=== PATIENT | male | born 1990 | race Caucasian/White ===

== ENCOUNTER 2017-01-04 12:07 | Outpatient (CLI) | payer OTHER | END 2017-01-04 12:08 | disposition EMS.NT | LOC: EMS 12:07 | PROVIDERS: ATTEND Surgery | DX: R07.9 Chest pain, unspecified (principal); R06.02 Shortness of breath ==

== ENCOUNTER 2017-01-04 13:20 | Inpatient (IN) | payer OTHER ==
[2017-01-04] MEDS ORDERED: SODIUM CHLORIDE 0.9% 1,000 ML IV ONE ×3 (13:37→14:26)
--- NOTE | 2017-01-04 13:54 | ED Physician Documentation ---
History of Present Illness - Stated complaint Stated Complaint: CP - Additonal information Additional information: hx from pt 26 AD [place] male senf by [facility] for CP SOA and high blood sugar pt reports he had a compound RLE fx with surgery 1-2 months ago healed well has been having CP and SOA for two days pain feels like a burning worse with exertion profoundly exhausted and fatigued also has been drinking and urinating gallons every day for a while today in clinic his FSBS read "High" has has ketotic odor to his breathe denies fever cough nausea too - cannot eat Review of Systems Constitutional: denies: Fever, Chills Cardiac: reports: Chest pain / pressure Respiratory: reports: Dyspnea. denies: Cough GI: reports: Nausea. denies: Abdominal Pain : reports: Frequency Endocrine: denies: Easy bruising / bleeding Immunocompromised: denies: Immunocompromised PD PAST MEDICAL HISTORY - Present Medications Home Medications: Ambulatory Orders Medication Instructions Recorded Confirmed No Known Home Medications [No 01/04/17 01/04/17 Known Home Medications] - Allergies Allergies/Adverse Reactions: Allergies Allergy/AdvReac Type Severity Reaction Status Date / Time No Known Drug Allergies Allergy Verified 01/04/17 13:59 PD ED PE NORMAL - Vitals Vital signs reviewed: Yes - General General: Alert and oriented X 3 - HEENT HEENT: Other (ketotic odor) - Cardiac Cardiac: RRR - Respiratory Respiratory: No respiratory distress, Clear bilaterally - Abdomen Abdomen: Soft, Non tender - Derm Derm: Normal color - Extremities Extremities: No deformity, Other (post op scars, well healed, no edema) - Neuro Neuro: Alert and oriented X 3 Results - Vitals Vitals: Vital Signs - 24 hr 01/04/17 01/04/17 13:38 15:09 Heart Rate 94 91 Respiratory 18 16 Rate Blood Pressure 139/88 H 133/83 H O2 Saturation 97 100 Oxygen O2 Source Room air - EKG (time done) 1330 Rate: Rate (enter#) (94) Rhythm: NSR [place]: Normal Intervals: Normal MD Ischemia: ST elevation c/w repol - Labs Labs: Laboratory Tests 01/04/17 01/04/17 01/04/17 13:30 13:51 13:51 WBC 8.3 RBC 6.06 Hgb 16.4 Hct 48.3 MCV 79.8 L MCH 27.1 MCHC 33.9 RDW 13.8 Plt Count 242 MPV 8.6 Neut # 6.3 Lymph # 1.4 L [place] # 0.6 Eos # 0.0 Baso # 0.1 Absolute Nucleated RBC 0.00 Nucleated RBC % 0.0 VBG pH VBG pCO2 VBG pO2 VBG HCO3 VBG Total CO2 VBG O2 Saturation VBG Base Excess Sodium 124 L Potassium 3.9 Chloride 89 L Carbon Dioxide 11 L* Anion Gap 24.0 H BUN 13 Creatinine 1.1 Estimated GFR (MDRD) 82 L Glucose 522 H* POC Whole Bld Glucose Calcium 9.7 Total Bilirubin 1.5 H AST 17 ALT 25 Alkaline Phosphatase 113 Troponin I Total Protein 9.6 H Albumin 5.4 Globulin 4.2 Albumin/Globulin Ratio 1.3 Lipase 30 Urine Color LT. YELLOW Urine Clarity CLEAR Urine pH 5.5 Ur Specific [place] 1.020 Urine Protein NEGATIVE Urine Glucose (UA) >=1000 H Urine Ketones >=80 H Urine Occult Blood NEGATIVE Urine Nitrite NEGATIVE Urine Bilirubin NEGATIVE Urine Urobilinogen 0.2 (NORMAL) Ur Leukocyte Esterase NEGATIVE Ur Microscopic Review NOT INDICATED Urine Culture Comments NOT INDICATED Serum Ketones SMALL H 01/04/17 01/04/17 01/04/17 13:51 13:51 15:06 WBC RBC Hgb Hct MCV MCH MCHC RDW Plt Count MPV Neut # Lymph # [place] # Eos # Baso # Absolute Nucleated RBC Nucleated RBC % VBG pH 7.165 L VBG pCO2 34.3 L VBG pO2 21.5 L VBG HCO3 12.1 L VBG Total CO2 13.1 L VBG O2 Saturation 43.3 L VBG Base Excess -15.4 L Sodium Potassium Chloride Carbon Dioxide Anion Gap BUN Creatinine Estimated GFR (MDRD) Glucose POC Whole Bld Glucose 426 H Calcium Total Bilirubin AST ALT Alkaline Phosphatase Troponin I < 0.04 Total Protein Albumin Globulin Albumin/Globulin Ratio Lipase Urine Color Urine Clarity Urine pH Ur Specific [place] Urine Protein Urine Glucose (UA) Urine Ketones Urine Occult Blood Urine Nitrite Urine Bilirubin Urine Urobilinogen Ur Leukocyte Esterase Ur Microscopic Review Urine Culture Comments Serum Ketones - Rads (name of study) CTPA Radiology: See rad report (no acute process, no PE, no dissection) PD MEDICAL DECISION MAKING - ED course ED course: DKA, given IVF and iinsulin gtt CP SOA weakness - EKG s ischemia, neg trop, neg CTPA will admit to ICU spoke to hospitalist at 1520 Departure - Departure Disposition: 66 [facility] DC/Xfer Clinical Impression: DKA (diabetic ketoacidoses) Qualifiers: Diabetes mellitus type: type 1 Diabetes mellitus complication detail: without coma Qualified Code(s): E10.10 - Type 1 diabetes mellitus with ketoacidosis without coma Condition: Fair
[2017-01-04 13:56] LABS: BILIRUBIN,URINE NEGATIVE (NEGATIVE); PH,URINE 5.5 PH (5.0-7.5)
[2017-01-04 14:03] LABS: BASOPHILS # (AUTO) 0.1 10^3/uL (0.0-0.1); BASOPHILS % (AUTO) 0.9 %; EOSINOPHILS % (AUTO) 0.4 %; HCT - HEMATOCRIT 48.3 % (42.0-52.0); HGB - HEMOGLOBIN 16.4 g/dL (14.0-18.0); LYMPHOCYTES # (AUTO) 1.4 10^3/uL (1.5-3.5); LYMPHOCYTES % (AUTO) 16.2 %; MEAN CORPUSCULAR HEMOGLOBIN 27.1 pg (27.0-31.0); MEAN CORPUSCULAR HGB CONC 33.9 g/dL (32.0-36.0); MEAN CORPUSCULAR VOLUME 79.8 fL (80.0-94.0); MEAN PLATELET VOLUME 8.6 fL (7.4-11.4); MONOCYTES # (AUTO) 0.6 10^3/uL (0.0-1.0); MONOCYTES % (AUTO) 6.6 %; NEUTROPHILS # (AUTO) 6.3 10^3/uL (1.5-6.6); NEUTROPHILS % (AUTO) 75.9 %; RED BLOOD COUNT 6.06 10^6/uL (4.70-6.10); RED CELL DISTRIBUTION WIDTH 13.8 % (12.0-15.0); UNCORRECTED WHITE BLOOD COUNT 8.3 x10^3/uL; WHITE BLOOD COUNT 8.3 x10^3/uL (4.8-10.8)
[2017-01-04 14:07] LABS: VBG PH 7.165 (7.31-7.41)
[2017-01-04 14:08] LABS: VBG BASE EXCESS -15.4 mmol/L (-2 - +2); VBG OXYGEN SATURATION 43.3 % (60-80); VBG TOTAL CO2 13.1 mmol/L (24-29)
[2017-01-04 14:08] LABS: UA CHARGE (STRIP ONLY) YES; UR CULTURE IF IND NOT INDICATED
[2017-01-04 14:23] LABS: ALBUMIN/GLOBULIN RATIO 1.3 (1.0-2.2); BILIRUBIN,TOTAL 1.5 mg/dL (0.2-1.0); BUN - BLOOD UREA NITROGEN 13 mg/dL (6-20); CALCIUM 9.7 mg/dL (8.5-10.3); CHLORIDE 89 mmol/L (101-111); CREATININE 1.1 mg/dL (0.6-1.2); GFR - MDRD 82 (>89); LIPASE 30 U/L (22-51); POTASSIUM 3.9 mmol/L (3.5-5.0); SODIUM 124 mmol/L (135-145); TOTAL PROTEIN 9.6 g/dL (6.7-8.2)
[2017-01-04 14:24] LABS: CARBON DIOXIDE - CO2 11 mmol/L (21-32); GLUCOSE 522 mg/dL (70-100)
[2017-01-04] MEDS ORDERED: INSULIN REGULAR HUMAN 100 UNIT in SODIUM CHLORIDE 0.9% 100ML 99 ML IV STA (14:25)
[2017-01-04] MEDS ORDERED: IOPAMIDOL-300 100 ML VIAL ONE (14:32)
[2017-01-04] MEDS ORDERED: IOPAMIDOL-300 100 ML VIAL IVP ONE (14:52)
--- NOTE | 2017-01-04 15:13 | CT Preliminary Report ---
Exam: CT CHEST ANGIO (PE) IMPRESSION: Negative for pulmonary embolism at this time. Unremarkable aorta. [facility] SITE ID: [id number]
--- NOTE | 2017-01-04 15:15 | CT Report ---
EXAM: CT ANGIOGRAM CHEST EXAM DATE: 01/04/2017 02:52 PM. CLINICAL HISTORY: Cp soa after recent compound fx RLE. COMPARISON: None. TECHNIQUE: Routine helical imaging was performed through the chest in the pulmonary arterial phase. I V Contrast: 80 cc Isovue 300. Reconstructions: Sagittal, coronal, and 3-D MIP.Sagittal and coronal. In accordance with CT protocol optimization, one or more of the following dose reduction techniques w ere utilized for this exam: automated exposure control, adjustment of mA and/or KV based on patient s ize, or use of iterative reconstructive technique. FINDINGS: Pulmonary Arteries: Diagnostic quality: Adequate through the segmental arteries. No definite evidence for acute or chroni c pulmonary emboli. Enhancement of smaller vessels is suboptimal. RV/LV is within normal limits. There is no interventricular septal bowing. There is no reflux of cont rast material in the IVC. Lungs/Pleura: Clear. No effusion or pneumothorax. Mediastinum: Normal heart size. No pericardial effusion. No coronary artery calcification. No lymphad enopathy. Thoracic Aorta: Well-opacified and unremarkable. Upper Abdomen: Unremarkable. Other: None. IMPRESSION: Negative for pulmonary embolism at this time. Unremarkable aorta. [facility] Referring Provider Line: [phone] SITE ID: [id number]
[2017-01-04] MEDS ORDERED: ACETAMINOPHEN 325 MG TABLET PO PRN (15:25)
[2017-01-04] MEDS ORDERED: oxyCODONE 5 MG TABLET PO PRN (15:25)
[2017-01-04] MEDS ORDERED: PROCHLORPERAZINE 10 MG/2 ML VIAL IVP PRN (15:25)
[2017-01-04] MEDS ORDERED: ZOLPIDEM 5 MG TABLET PO PRN (15:25)
[2017-01-04] MEDS ORDERED: SODIUM CHLORIDE FLUSH 0.9% 10 ML SYRINGE IVP PRN (15:25)
[2017-01-04] MEDS ORDERED: SODIUM CHLORIDE 0.9% 1,000 ML IV SCH (16:00)
[2017-01-04 16:28] LABS: HEMOGLOBIN A1C 2.2 g/dL
[2017-01-04 16:42] LABS: VBG PH 7.171 (7.31-7.41)
[2017-01-04 16:43] LABS: VBG BASE EXCESS -16.9 mmol/L (-2 - +2); VBG OXYGEN SATURATION 84.3 % (60-80); VBG TOTAL CO2 10.8 mmol/L (24-29)
[2017-01-04] MEDS: SODIUM CHLORIDE FLUSH 0.9% 10 ML SYRINGE IVP SCH (16:59)
[2017-01-04] MEDS: PANTOPRAZOLE 40 MG VIAL IVP SCH (16:59)
[2017-01-04] MEDS ORDERED: SODIUM BICARBONATE ABBOJECT 50 MEQ/50 ML SYRINGE IVP ONE (17:03)
[2017-01-04 17:53] LABS: BUN - BLOOD UREA NITROGEN 12 mg/dL (6-20); CALCIUM 8.6 mg/dL (8.5-10.3); CARBON DIOXIDE - CO2 15 mmol/L (21-32); CHLORIDE 102 mmol/L (101-111); CREATININE 0.8 mg/dL (0.6-1.2); GFR - MDRD 119 (>89); GLUCOSE 123 mg/dL (70-100); MAGNESIUM 1.7 mg/dL (1.7-2.8); POTASSIUM 3.3 mmol/L (3.5-5.0); SODIUM 134 mmol/L (135-145)
[2017-01-04] MEDS ORDERED: DEXTROSE 5% 1,000 ML IV SCH (18:00)
[2017-01-04] MEDS ORDERED: INSULIN REGULAR HUMAN 100 UNIT in SODIUM CHLORIDE 0.9% 100ML 99 ML IV ONE (18:43)
[2017-01-04 19:57] LABS: BUN - BLOOD UREA NITROGEN 11 mg/dL (6-20); CALCIUM 8.5 mg/dL (8.5-10.3); CARBON DIOXIDE - CO2 13 mmol/L (21-32); CHLORIDE 102 mmol/L (101-111); CREATININE 0.8 mg/dL (0.6-1.2); GFR - MDRD 119 (>89); GLUCOSE 223 mg/dL (70-100); MAGNESIUM 1.7 mg/dL (1.7-2.8); POTASSIUM 3.2 mmol/L (3.5-5.0); SODIUM 130 mmol/L (135-145)
[2017-01-04] MEDS: NICOTINE 21 MG PATCH TOP SCH (20:44)
[2017-01-04] MEDS ORDERED: D5.45NS W/20 MEQ KCL 1,000 ML IV SCH (21:00)
[2017-01-04 21:19] LABS: CALCIUM 8.6 mg/dL (8.5-10.3); CREATININE 0.9 mg/dL (0.6-1.2)
[2017-01-05 01:53] LABS: CALCIUM 8.3 mg/dL (8.5-10.3); CREATININE 0.9 mg/dL (0.6-1.2); POTASSIUM 3.5 mmol/L (3.5-5.0)
[2017-01-05] MEDS ORDERED: NS W/20 MEQ KCL 1,000 ML IV SCH (03:00)
[2017-01-05] MEDS ORDERED: INSULIN GLARGINE 300 UNIT/3 ML PEN SUBQ SCH (03:00)
[2017-01-05] MEDS: SODIUM CHLORIDE FLUSH 0.9% 10 ML SYRINGE IVP SCH ×3 (03:05→21:37)
[2017-01-05 03:59] LABS: HEMOGLOBIN A1C 1.76 g/dL
[2017-01-05] MEDS: PANTOPRAZOLE 40 MG VIAL IVP SCH (06:06)
[2017-01-05] MEDS: INSULIN ASPART 300 UNIT/3 ML PEN SUBQ SCH ×4 (08:02→21:36)
[2017-01-05] MEDS: ENOXAPARIN 40 MG/0.4 ML SYRINGE SUBQ SCH (09:03)
[2017-01-05] MEDS: NICOTINE 21 MG PATCH TOP SCH (09:05)
[2017-01-05] MEDS ORDERED: INSULIN ASPART 300 UNIT/3 ML PEN SUBQ SCH (11:58)
--- NOTE | 2017-01-05 16:11 | HISTORY & PHYSICAL EXAMINATION ---
DATE OF ADMISSION: 01/04/2017 HISTORY OF PRESENT ILLNESS: This is a 26-year-old white male with a negative past medical history. He takes no routine prescription medications. The patient is in the [email or web address] here on [facility] and also is enrolled in a class. The patient noticed excessive thirst for the past several weeks. There was no change in his bladder or bowels function. Several weeks later, he noticed a "burning chest pain" which was only relieved with drinking milk. This chest pain was not worsened by any activity. There was no associated shortness of breath. There was increased fatigue in general, however. Yesterday while walking from his car to his class he developed significant shortness of breath and also experiences burning chest pain and after attending the class he went to the medical clinic at the [facility]. Evaluation there apparently showed a "high glucose." He was sent to this hospital's emergency room for further management. In the emergency room he was found to have a glucose over 500, acidosis on his blood gas with positive ketones and diagnosed with DKA, new onset of diabetes as well. The patient has been admitted to the intensive care unit for a DKA protocol and has been started on IV fluids and IV insulin drip. REVIEW OF SYSTEMS: The patient denies any recent flu-like symptoms, cough or sputum production, abdominal pain or diarrhea, dysuria, nausea or vomiting. He has never had this type of "burning chest pain" previously. There had been no recent exposures to people who are ill. He has not traveled out of the country. The patient did try taking Tums for his burning chest pain, thinking that it was new onset of indigestion, but this gave no relief, only drinking milk would improve that symptom. A comprehensive review of systems was performed and the only positives are as above. FAMILY HISTORY: Significant for his father has type 2 diabetes. No other family members had any inherited diseases. He has no children. SOCIAL HISTORY: The patient is enrolled in school through [employer] and is active in the [email or web address]. The patient drives. He lives with his . The patient does not smoke cigarettes, but occasionally vapes. He denies very rare alcohol use (1 beer every 3 months). He denies any illicit drug use. MEDICATIONS AT HOME: None. ALLERGIES: NONE. PHYSICAL EXAMINATION: GENERAL: Reveals a young white male who was in no apparent distress, supine in bed, appears fatigued. VITAL SIGNS: Blood pressure is 107/60, pulse is 75 and sinus rhythm. He is afebrile, respiratory rate 22, oxygen saturation 98% on room air. HEENT: Unremarkable except for dry oral mucosa, good dental hygiene is noted. NECK: Shows no JVD, no carotid bruits, no thyromegaly or lymphadenopathy. CHEST: Clear. Good air movement. HEART: Sounds are normal. No audible murmurs. ABDOMEN: Soft, nontender. No guarding or rebound. Normal bowel sounds. EXTREMITIES: No clubbing, cyanosis, or edema. SKIN: There is no rash evident. NEUROLOGIC: Grossly normal. LABORATORY: Sodium 124, potassium 3.9, BUN 13, creatinine 1.1, glucose 522, bilirubin 1.5. Troponin not detected at less than 0.04, normal lipase. Anion gap 24, pH 7.165, bicarbonate 12, CBC within normal limits. Serum ketones, small positive. Urine esterase negative with a pH of 5.5. IMAGING: CT of the chest was performed for evaluation of the severe shortness of breath and this was negative for pulmonary embolism and an unremarkable aorta. EKG sinus rhythm at a rate of 94 with J-point elevation (consistent with a normal early repolarization pattern). There is no old EKG available for comparison. IMPRESSION/DIAGNOSES: 1. Diabetic ketoacidosis. 2. New onset of diabetes. 3. Atypical chest pain per angina/"burning chest pain." 4. Shortness of breath. PLAN: Admit the patient to the ICU for DKA protocol including aggressive IV fluid administration and IV insulin drip per titration protocol. Follow his electrolytes, glucose, ketones, anion gap and pH, as well as urine ketones. The patient will require diabetic teaching and diabetic management which are all new to him. Evaluation for an etiology of type 1 diabetes in this previously young healthy male should be undertaken including evaluation for recent atypical viral infection, pancreatitis or other possible causes. Start H2 emeli for ulcer prophylaxis and also treatment of "burning chest pain " which could be GERD. Evaluation of the burning complaint would follow after stabilization from DKA. Echo could be obtained to evaluate the shortness of breath. Also, cycle troponins and observe his rhythm on telemetry. I suspect, however, that his "shortness of breath" was his appropriate hyperventilation compensating for the present metabolic acidosis of DKA JOB #: [id number] EXT JOB #:[id number] ROXIE
--- NOTE | 2017-01-05 16:19 | PROVIDER PROGRESS NOTE ---
Subjective - Prog Note Date Prog Note Date: 01/05/17 Prog Note Time: 16:16 - Subjective Pt reports feeling: Improved Subjective: He has been off the insulin drip since about 4 5 this morning. He received 10 units of Lantus at about 2:55 AM. His glucoses have been high at 390 this morning and 299 after eating breakfast. I have given him a single dose of short -acting insulin of 20 units for the 399. Current Medications - Current Medications Current Medications: Active Medications Acetaminophen (Tylenol) 650 mg PO Q4HR PRN PRN Reason: Pain 1 to 4 Enoxaparin Sodium (Lovenox) 40 mg SUBQ DAILY [facility], [facility] Last Admin: 01/05/17 09:03 Dose: 40 mg Insulin Aspart (Novolog) 1 - 9 unit SUBQ 0800,1200,1700,2100 [facility], [facility] PRN Reason: Protocol Insulin Glargine (Lantus Solostar) 10 unit SUBQ AC [facility], [facility]1983 Insulin Glargine (Lantus Solostar) 20 unit SUBQ QPM [facility] Nicotine (Nicoderm) 1 patch TOP DAILY [facility] Last Admin: 01/05/17 09:05 Dose: Not Given Oxycodone HCl (Roxicodone) 10 mg PO Q4HR PRN PRN Reason: Pain 8 to 10 Pantoprazole Sodium (Protonix) 40 mg IVP QDAC [facility] Last Admin: 01/05/17 06:06 Dose: 40 mg Prochlorperazine Edisylate (Compazine Inj) 10 mg IVP Q6HR PRN PRN Reason: Nausea / Vomiting Sodium Chloride (Normal Saline Flush 0.9%) 10 ml IVP Q8HR [facility] Last Admin: 01/05/17 14:39 Dose: 10 ml Sodium Chloride (Normal Saline Flush 0.9%) 10 ml IVP PRN PRN PRN Reason: NEEDED PER PROVIDER ORDERS Zolpidem Tartrate (Ambien) 5 mg PO QPM PRN PRN Reason: Insomnia No Known Home Medications [No Known Home Medications] 01/04/17 Objective - Vital Signs/Intake & Output Reviewed Vital Signs: Yes Vital Signs: Vital Signs x48h Pulse Resp BP Pulse Ox 01/05/17 16:00 18 104/55 L 98 01/05/17 15:00 70 24 114/72 97 01/05/17 14:00 87 19 96 01/05/17 13:00 80 24 96 01/05/17 12:00 92 14 96 01/05/17 11:00 70 25 H 97 01/05/17 10:00 76 23 102/63 92 01/05/17 09:00 73 21 107/59 L 97 Intake & Output: Intake & Output 01/02/17 01/03/17 01/04/17 01/05/17 23:59 23:59 23:59 23:59 Intake Total 1892.315 3100.167 Output Total 1999 1800 Balance -775.885 4683.167 - Objective General Appearance: positive: No acute distress, Alert Eyes Bilateral: positive: PERRL, EOMI ENT: positive: Pharynx nml Neck: positive: No JVD. negative: Stiff neck, Carotid bruit Respiratory: positive: Chest non-tender. negative: Wheezes, Rales, Rhonchi Cardiovascular: positive: Regular rate & rhythm, Tachycardia. negative: Gallop/ S4, Friction rub Abdomen: positive: Non-tender, No organomegaly, Nml bowel sounds, No distention Skin: positive: Warm, Dry Extremities: positive: No pedal edema Neurologic/Psychiatric: positive: Oriented x3, CN's nml (2-12), Motor nml - Lab Results Fish Bones: 01/04/17 13:51 01/05/17 01:39 Other Labs: Lab Results x24hrs 01/05/17 01/05/17 01/05/17 Range/Units 14:12 11:55 09:23 VBG pH (7.31-7.41) VBG pCO2 (41-51) mmHg VBG pO2 (25-47) mmHg VBG HCO3 (23-28) mmol/L VBG Total CO2 (24-29) mmol/L VBG O2 Saturation (60-80) % VBG Base Excess (-2 - +2) mmol/L Sodium (135-145) mmol/L Potassium (3.5-5.0) mmol/L Chloride (101-111) mmol/L Carbon Dioxide (21-32) mmol/L Anion Gap (6-13) BUN (6-20) mg/dL Creatinine (0.6-1.2) mg/dL Estimated GFR (MDRD) (>89) Glucose (70-100) mg/dL POC Whole Bld Glucose 299 H 391 H (70 - 100) mg/dL Glycated Hemoglobin (4.6-6.2) % Estim Average Glucose (70-100) Calcium (8.5-10.3) mg/dL Magnesium (1.7-2.8) mg/dL Troponin I < 0.04 (<0.49) ng/mL Triglycerides ( - 149) mg/dL Serum Ketones (NEGATIVE) 01/05/17 01/05/17 01/05/17 Range/Units 07:50 06:09 03:41 VBG pH (7.31-7.41) VBG pCO2 (41-51) mmHg VBG pO2 (25-47) mmHg VBG HCO3 (23-28) mmol/L VBG Total CO2 (24-29) mmol/L VBG O2 Saturation (60-80) % VBG Base Excess (-2 - +2) mmol/L Sodium (135-145) mmol/L Potassium (3.5-5.0) mmol/L Chloride (101-111) mmol/L Carbon Dioxide (21-32) mmol/L Anion Gap (6-13) BUN (6-20) mg/dL Creatinine (0.6-1.2) mg/dL Estimated GFR (MDRD) (>89) Glucose (70-100) mg/dL POC Whole Bld Glucose 185 H 199 H 203 H (70 - 100) mg/dL Glycated Hemoglobin (4.6-6.2) % Estim Average Glucose (70-100) Calcium (8.5-10.3) mg/dL Magnesium (1.7-2.8) mg/dL Troponin I (<0.49) ng/mL Triglycerides ( - 149) mg/dL Serum Ketones (NEGATIVE) 01/05/17 01/05/17 01/05/17 Range/Units 03:31 03:31 03:31 VBG pH (7.31-7.41) VBG pCO2 (41-51) mmHg VBG pO2 (25-47) mmHg VBG HCO3 (23-28) mmol/L VBG Total CO2 (24-29) mmol/L VBG O2 Saturation (60-80) % VBG Base Excess (-2 - +2) mmol/L Sodium (135-145) mmol/L Potassium (3.5-5.0) mmol/L Chloride (101-111) mmol/L Carbon Dioxide (21-32) mmol/L Anion Gap (6-13) BUN (6-20) mg/dL Creatinine (0.6-1.2) mg/dL Estimated GFR (MDRD) (>89) Glucose (70-100) mg/dL POC Whole Bld Glucose (70 - 100) mg/dL Glycated Hemoglobin 13.7 H (4.6-6.2) % Estim Average Glucose 346 H (70-100) Calcium (8.5-10.3) mg/dL Magnesium (1.7-2.8) mg/dL Troponin I < 0.04 (<0.49) ng/mL Triglycerides 249 H ( - 149) mg/dL Serum Ketones (NEGATIVE) 01/05/17 01/05/17 01/04/17 Range/Units 01:39 00:22 23:07 VBG pH (7.31-7.41) VBG pCO2 (41-51) mmHg VBG pO2 (25-47) mmHg VBG HCO3 (23-28) mmol/L VBG Total CO2 (24-29) mmol/L VBG O2 Saturation (60-80) % VBG Base Excess (-2 - +2) mmol/L Sodium 133 L (135-145) mmol/L Potassium 3.5 (3.5-5.0) mmol/L Chloride 108 (101-111) mmol/L Carbon Dioxide 17 L (21-32) mmol/L Anion Gap 8.0 (6-13) BUN 9 (6-20) mg/dL Creatinine 0.9 (0.6-1.2) mg/dL Estimated GFR (MDRD) 104 (>89) Glucose 236 H (70-100) mg/dL POC Whole Bld Glucose 219 H 223 H (70 - 100) mg/dL Glycated Hemoglobin (4.6-6.2) % Estim Average Glucose (70-100) Calcium 8.3 L (8.5-10.3) mg/dL Magnesium (1.7-2.8) mg/dL Troponin I (<0.49) ng/mL Triglycerides ( - 149) mg/dL Serum Ketones (NEGATIVE) 01/04/17 01/04/17 01/04/17 Range/Units 22:12 21:03 21:03 VBG pH (7.31-7.41) VBG pCO2 (41-51) mmHg VBG pO2 (25-47) mmHg VBG HCO3 (23-28) mmol/L VBG Total CO2 (24-29) mmol/L VBG O2 Saturation (60-80) % VBG Base Excess (-2 - +2) mmol/L Sodium 131 L (135-145) mmol/L Potassium 3.0 L (3.5-5.0) mmol/L Chloride 103 (101-111) mmol/L Carbon Dioxide 13 L (21-32) mmol/L Anion Gap 15.0 H (6-13) BUN 10 (6-20) mg/dL Creatinine 0.9 (0.6-1.2) mg/dL Estimated GFR (MDRD) 104 (>89) Glucose 214 H (70-100) mg/dL POC Whole Bld Glucose 209 H (70 - 100) mg/dL Glycated Hemoglobin (4.6-6.2) % Estim Average Glucose (70-100) Calcium 8.6 (8.5-10.3) mg/dL Magnesium (1.7-2.8) mg/dL Troponin I < 0.04 (<0.49) ng/mL Triglycerides ( - 149) mg/dL Serum Ketones (NEGATIVE) 01/04/17 01/04/17 01/04/17 Range/Units 19:33 18:29 18:08 VBG pH (7.31-7.41) VBG pCO2 (41-51) mmHg VBG pO2 (25-47) mmHg VBG HCO3 (23-28) mmol/L VBG Total CO2 (24-29) mmol/L VBG O2 Saturation (60-80) % VBG Base Excess (-2 - +2) mmol/L Sodium 130 L (135-145) mmol/L Potassium 3.2 L (3.5-5.0) mmol/L Chloride 102 (101-111) mmol/L Carbon Dioxide 13 L (21-32) mmol/L Anion Gap 15.0 H (6-13) BUN 11 (6-20) mg/dL Creatinine 0.8 (0.6-1.2) mg/dL Estimated GFR (MDRD) 119 (>89) Glucose 223 H 150 H (70-100) mg/dL POC Whole Bld Glucose 124 H (70 - 100) mg/dL Glycated Hemoglobin (4.6-6.2) % Estim Average Glucose (70-100) Calcium 8.5 (8.5-10.3) mg/dL Magnesium 1.7 (1.7-2.8) mg/dL Troponin I (<0.49) ng/mL Triglycerides ( - 149) mg/dL Serum Ketones SMALL H (NEGATIVE) 01/04/17 01/04/17 01/04/17 Range/Units 17:34 17:00 16:34 VBG pH (7.31-7.41) VBG pCO2 (41-51) mmHg VBG pO2 (25-47) mmHg VBG HCO3 (23-28) mmol/L VBG Total CO2 (24-29) mmol/L VBG O2 Saturation (60-80) % VBG Base Excess (-2 - +2) mmol/L Sodium 134 L (135-145) mmol/L Potassium 3.3 L (3.5-5.0) mmol/L Chloride 102 (101-111) mmol/L Carbon Dioxide 15 L (21-32) mmol/L Anion Gap 17.0 H (6-13) BUN 12 (6-20) mg/dL Creatinine 0.8 (0.6-1.2) mg/dL Estimated GFR (MDRD) 119 (>89) Glucose 123 H 178 H (70-100) mg/dL POC Whole Bld Glucose 157 H (70 - 100) mg/dL Glycated Hemoglobin (4.6-6.2) % Estim Average Glucose (70-100) Calcium 8.6 (8.5-10.3) mg/dL Magnesium 1.7 (1.7-2.8) mg/dL Troponin I (<0.49) ng/mL Triglycerides ( - 149) mg/dL Serum Ketones SMALL H (NEGATIVE) 01/04/17 Range/Units 16:34 VBG pH 7.171 L (7.31-7.41) VBG pCO2 27.9 L (41-51) mmHg VBG pO2 48.8 H (25-47) mmHg VBG HCO3 10.0 L (23-28) mmol/L VBG Total CO2 10.8 L (24-29) mmol/L VBG O2 Saturation 84.3 H (60-80) % VBG Base Excess -16.9 L (-2 - +2) mmol/L Sodium (135-145) mmol/L Potassium (3.5-5.0) mmol/L Chloride (101-111) mmol/L Carbon Dioxide (21-32) mmol/L Anion Gap (6-13) BUN (6-20) mg/dL Creatinine (0.6-1.2) mg/dL Estimated GFR (MDRD) (>89) Glucose (70-100) mg/dL POC Whole Bld Glucose (70 - 100) mg/dL Glycated Hemoglobin (4.6-6.2) % Estim Average Glucose (70-100) Calcium (8.5-10.3) mg/dL Magnesium (1.7-2.8) mg/dL Troponin I (<0.49) ng/mL Triglycerides ( - 149) mg/dL Serum Ketones (NEGATIVE) Assessment/Plan - Problem List (1) DKA (diabetic ketoacidoses) Impression: Present on admission, new diagnosis. A1c is between 13 and 14%. So far no complications of retinopathy, neuropathy or nephropathy. Plan: Diabetic education is started with nursing here. He has been taught how to do his own injections and glucometer checks We will [place] team M[facility] make sure his family practitioner sees him soon and referred him to diabetic education I will increase his Lantus from a single 10 unit dose to 20 units at night, 10 units in the morning. Fixed of 3 units with each meal. Qualifiers: Diabetes mellitus type: type 1 Diabetes mellitus complication detail: without coma Qualified Code(s): E10.10 - Type 1 diabetes mellitus with ketoacidosis without coma (2) High anion gap metabolic acidosis Impression: Slowly resolving as he is received IV hydration and his insulin. While his anion gap was normal, still a little bit acidotic on CO2. We will continue to monitor. Once labs completely normal, patient would be a candidate for discharge
[2017-01-05] MEDS: INSULIN GLARGINE 300 UNIT/3 ML PEN SUBQ SCH ×2 (17:20→21:36)
[2017-01-06] MEDS: PANTOPRAZOLE 40 MG VIAL IVP SCH (06:56)
[2017-01-06] MEDS: SODIUM CHLORIDE FLUSH 0.9% 10 ML SYRINGE IVP SCH (06:56)
[2017-01-06] MEDS ORDERED: INSULIN GLARGINE 300 UNIT/3 ML PEN SUBQ SCH (07:00)
[2017-01-06] MEDS: INSULIN ASPART 300 UNIT/3 ML PEN SUBQ SCH (07:58)
[2017-01-06] MEDS ORDERED: INSULIN ASPART 300 UNIT/3 ML PEN SUBQ ONE (08:33)
--- NOTE | 2017-01-06 08:43 | Discharge Plan ---
Discharge Plan Disposition: Home, Self Care Condition: Good Prescriptions: Blood Sugar Diagnostic [Glucometer Strips] 1 each QID #120 strip Blood-Glucose Meter [Glucometer] 1 each DAILY #1 each Insulin Aspart [NovoLOG] 5 unit SUBQ 0800,1200,1700,2100 #3 pen Insulin Glargine [Lantus Solostar] 25 unit SUBQ QPM #3 pen Lancets 1 each QID #120 each [place], Disposable [Needle] 1 each QID #120 dis.needle Diet: Diabetic Activity Restrictions: Activity as Tolerated Shower Restrictions: No Driving Restrictions: No Instruction Topics: Anion Gap Blood, DKA Prevent Ch Additional Instructions or Follow Up instructions: You were admitted to the hospital because of a severe elevation of glucose resulting in diabetic ketoacidosis. Unfortunately you have a new diagnosis of type 1 diabetes. You have received instruction in how to check your sugars and give yourself insulin. But we would strongly encourage you to follow-up with your primary care provider at the [facility] for further monitoring and instruction. You also need to be referred for diabetic education. At this time we are sending you home with a single dose of Lantus in the evening. Take 3 units of short acting insulin before each meal. But adjust your insulin before each meal depending on how much carbohydrates are going to eat using a sliding scale as well. There is always a possibility of a low sugar reaction which is confusion, headache, nausea, sweats. Whenever you feel ill or strange make sure you check your sugar. If your sugar is below 70, drink a small glass of orange juice. You only need 4-8 ounces. You can also drink any other juice. You might also try having hard candy available at all time such as Lifesavers. Always make sure you eat 3 small meals a day. Do not skip meals if you have taking your insulin. If you skip a meal after you have taking her insulin, your sugar may get too dangerously low. Your primary care provider and clinical staff educator will teach you about what to do in the event of a low sugar in addition to the above instructions. They may give you a prescription for a glucagon pen. No Smoking: If you smoke, Please STOP! Call for help.
[2017-01-06] MEDS: NICOTINE 21 MG PATCH TOP SCH (08:45)
[2017-01-06 09:05] VITALS: BP 115/62
[2017-01-06] MEDS: ENOXAPARIN 40 MG/0.4 ML SYRINGE SUBQ SCH (09:06)
--- NOTE | 2017-01-08 21:27 | DISCHARGE SUMMARY ---
DATE OF ADMISSION: 01/04/2017 DATE OF DISCHARGE: 01/06/2017 DISCHARGE DIAGNOSES: 1. Type 1 diabetic ketoacidosis. 2. Metabolic acidosis. 3. Atypical chest pain. DISCHARGE MEDICATIONS: 1. NovoLog insulin, 5 units fixed dose before each meal with sliding scale insulin. 2. Lantus 25 units subcutaneous q.p.m. 3. Diabetic supplies in the form of Glucometer, Glucometer strips, lancets, and disposable needles. PRINCIPAL PROCEDURE: ICU stay with IV insulin drip. 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 He noticed that he was not feeling well recently and started having polyuria, polydipsia, polyphagia. This has b een going on for several weeks. This last few weeks, he has noticed burning chest pain relieved by d rinking milk. Not worsened by any activity with no associated shortness of breath. Yesterday while wa lking from his car to his class he developed significant shortness of breath for the first time and b urning chest pain. He went to the medical clinic at the [facility], where he was found to have "a high glucose" and sent to our emergency room. He has been identified as having diabetic ketoacidosis with hypokalemia, elevated anion gap, and dehydration. He has no abdominal pain or diarrhea. HOSPITAL COURSE: He is a young white male who was in no apparent distress. Otherwise normal exam othe r than dehydration. He was placed in the ICU on insulin drip and electrolytes were judiciously watche d on DKA protocol with ICU supplementation. Hypokalemia was treated, calcium was treated. As for his atypical chest pain, he had a less than 0.04 troponin and EKG was sinus without any acute changes. It is felt that he probably has some form of reflux and atypical chest pain unrelated to angina. The ICU nursing staff was phenomenal in teaching this gentleman how to do his own glucose checks, nut rition education, and were very supportive. Many times during his stay, he expressed his compliments and was very happy with the care of nursing here. Nutrition services to see him as well. He was transitioned from the ICU to med/surg status. Insulin was adjusted for his final doses. On the day of discharge, temperature is 97.6, pulse is 78, blood pressure is 115/62, respirations 15 and he is 95% on room air. He is a slender, short statured young white male in no acute distress. NECK: Sup ple. LUNGS: Clear to auscultation and percussion. PMI normally placed and a regular rate and rhythm w ith no murmurs. The abdomen was soft, nontender. Normal bowel sounds. No organomegaly. Hands and feet were warm. Feet were without edema. He is able to come from a lying position to a sitting position t o a standing position and ambulate in the room without any difficulty. He is having adequate p.o. int lan. Greater than 30 minutes was spent coordinating discharge. Diabetic supplies were ordered for him. He is to follow up with [facility] and take his glucose diary with him to the clinic. Also needs to be u rgently referred for diabetic education. JOB #: [id number] EXT JOB #:[id number]
== END 2017-01-06 10:05 | disposition home or self-care (01) | DRG 639 ==
LOC: ED 13:20 → ICU 15:25
PROVIDERS: ADMIT Internal Medicine; ATTEND Specialist
DX: E10.10 Type 1 diabetes mellitus with ketoacidosis without coma (principal); R07.89 Other chest pain; E87.6 Hypokalemia; E86.0 Dehydration; Z83.3 Family history of diabetes mellitus
CPT/HCPCS: 36415; 71275; 80048; 80053; 81001; 81003; 82009; 82803; 82947; 83036; 83690; 83735; 84478; 84484; 85025; 87040; 87086; 87150; 93005; 96360; 99284; 99285; 99406